=== PATIENT | male | born 1940 | race Caucasian/White ===

== ENCOUNTER 2018-01-02 19:52 | Emergency (ER) | payer MEDICARE, OTHER ==
--- NOTE | 2018-01-02 20:37 | EDM.PDOC ---
ED HPI GENERAL MEDICAL PROBLEM - General Chief Complaint: Genitourinary Problem Stated Complaint: BLOOD IN URINE Time Seen by Provider: 01/02/18 20:06 Source of Information: Reports: Patient History Limitations: Reports: No Limitations - History of Present Illness INITIAL COMMENTS - FREE TEXT/NARRATIVE: 77 YO WM with PMH of BPH and questionable Bladder CA over 18 years ago presents to ER with hematuria. Pt reports episode of hematuria around 4am today. Pt states he had clear urine throughout the day but this evening notice more hematuria prompting ER evaluation. Pt denies urinary retention, denies back pain or abdominal pain, denies fever/chills or nausea/vomiting. Pt reports no dysuria, but increased frequency that he suggests is related to increased oral fluid intake. Pt denies any anticoagulation or anti-platelet treatments currently. Onset: Today Onset Date: 01/02/18 Onset Time: 04:00 Duration: Day(s): (1) Severity: Mild Improves with: Reports: None Worsens with: Reports: None Associated Symptoms: Reports: No Other Symptoms - Related Data Allergies Allergy/AdvReac Type Severity Reaction Status Date / Time No Known Allergies Allergy Verified 01/02/18 20:00 Home Meds: Home Meds Albuterol [Proventil Neb Soln] 2.5 mg INH TID 01/02/18 [History] Albuterol [Ventolin HFA] 2 puff INH Q4H PRN 01/02/18 [History] Budesonide/Formoterol Fumarate [Symbicort 160-4.5 Mcg Inhaler] 2 puff IH BID [History] Cephalexin [Keflex] 500 mg PO Q6H #40 cap 01/02/18 [Rx] Finasteride [Proscar] 5 mg PO DAILY 01/02/18 [History] Fluticasone Propionate [Flonase Allergy Relief] 1 spray ROBB BEDTIME 01/02/18 [ History] Lisinopril [Prinivil] 20 mg PO DAILY 01/02/18 [History] Potassium 99 mg PO DAILY 01/02/18 [History] Simvastatin [Zocor] 20 mg PO DAILY 01/02/18 [History] Terazosin [Hytrin] 20 mg PO BEDTIME 01/02/18 [History] ED ROS GENERAL - Review of Systems Review Of Systems: See Below Constitutional: Reports: No Symptoms HEENT: Reports: No Symptoms Respiratory: Reports: No Symptoms. Denies: Hemoptysis Cardiovascular: Reports: No Symptoms Endocrine: Reports: No Symptoms GI/Abdominal: Denies: Abdominal Pain, Black Stool, Bloody Stool, Hematemesis, Hematochezia, Melena, Nausea, Vomiting : Reports: Frequency, Hematuria. Denies: Dysuria, Flank Pain, Urgency, Urinary Retention Musculoskeletal: Reports: No Symptoms Skin: Reports: No Symptoms Neurological: Reports: No Symptoms Psychiatric: Reports: No Symptoms Hematologic/Lymphatic: Reports: No Symptoms Immunologic: Reports: No Symptoms ED EXAM, RENAL/ - Physical Exam Exam: See Below Exam Limited By: No Limitations General Appearance: Alert, WD/WN, No Apparent Distress Head: Atraumatic, Normocephalic Neck: Normal Inspection, Supple, Non-Tender, Full Range of Motion Respiratory/Chest: No Respiratory Distress, Lungs Clear, Normal Breath Sounds, No Accessory Muscle Use, Chest Non-Tender Cardiovascular: Normal Peripheral Pulses, Regular Rate, Rhythm, No Edema, No Gallop, No JVD, No Murmur, No Rub GI/Abdominal: Normal Bowel Sounds, Soft, Non-Tender, No Organomegaly, No Distention, No Abnormal Bruit, No Mass Back Exam: Normal Inspection, Full Range of Motion. No: CVA Tenderness (L), CVA Tenderness (R) Extremities: Normal Inspection, Normal Range of Motion, Non-Tender, Normal Capillary Refill, No Pedal Edema Neurological: Alert, Oriented, CN II-XII Intact, Normal Cognition, Normal Gait, Normal Reflexes, No Motor/Sensory Deficits Psychiatric: Normal Affect, Normal Mood Skin Exam: Warm, Dry, Intact, Normal Color, No Rash Lymphatic: No Adenopathy Course - Vital Signs Last Recorded V/S: Last Vital Signs Temp 36.9 C 01/02/18 20:00 Pulse 85 01/02/18 20:00 Resp 20 01/02/18 20:00 BP 149/49 H 01/02/18 20:00 Pulse Ox 93 L 01/02/18 20:00 - Orders/Labs/Meds Orders: Active Orders 24 hr Category Date Time Status Bladder Scan [RC] ONETIME Care 01/02/18 20:38 Ordered CULTURE URINE [RM] Stat Lab 01/02/18 21:01 Ordered URINALYSIS W/MICROSCOPIC [UA W/MICROSCOPIC] [URIN] Stat Lab 01/02/18 20:25 Ordered Labs: Laboratory Tests 01/02/18 01/02/18 01/02/18 Range/Units 20:35 20:35 20:40 WBC 7.4 (5.0-10.0) 10^3/uL RBC 4.32 L (4.50-6.00) 10^6/uL Hgb 14.2 (13.0-17.0) g/dL Hct 42.1 (40.0-52.0) % MCV 97.2 H (82.0-92.0) fL MCH 32.8 H (27.0-31.0) pg MCHC 33.7 (32.0-36.0) g/dL RDW 12.1 (11.5-14.5) % Plt Count 268 (150-300) 10^3/uL MPV 7.1 L (7.4-10.4) fL Neut % (Auto) 63.6 (50.0-70.0) % Lymph % (Auto) 23.3 (20.0-40.0) % [place] % (Auto) 8.4 H (2.0-8.0) % Eos % (Auto) 4.0 H (1.0-3.0) % Baso % (Auto) 0.7 (0.0-1.0) % Neut # (Auto) 4.7 (2.5-7.0) 10^3/uL Lymph # (Auto) 1.7 (1.0-4.0) 10^3/uL [place] # (Auto) 0.6 (0.1-0.8) 10^3/uL Eos # (Auto) 0.3 (0.1-0.3) 10^3/uL Baso # (Auto) 0.1 (0.0-0.1) 10^3/uL Sodium 144 (136-145) mmol/L Potassium 3.8 (3.3-5.3) mmol/L Chloride 106 (98-115) mmol/L Carbon Dioxide 26.6 (21.0-32.0) mmol/L BUN 20 (6-25) mg/dL Creatinine 0.93 (0.51-1.17) mg/dL Est Cr Clr Drug Dosing 53.93 mL/min Estimated GFR (MDRD) > 60 mL/min Glucose 126 H (70-110) mg/dL Calcium 8.6 L (8.7-10.3) mg/dL Specimen Type Urinvoid Urine Color Red H (YELLOW) Urine Appearance Cloudy H (CLEAR) Urine pH 5.0 (5.0-9.0) Ur Specific [place] <= 1.005 (1.005-1.030) Urine Protein >=300 H (NEGATIVE) mg/dL Urine Glucose (UA) 100 H (NEGATIVE) mg/dL Urine Ketones 15 H (NEGATIVE) mg/dL Urine Occult Blood Large H (NEGATIVE) Urine Nitrite Negative (NEGATIVE) Urine Bilirubin Large H (NEGATIVE) Urine Urobilinogen 2.0 H (0.2-1.0) E.U./dL Ur Leukocyte Esterase Large H (NEGATIVE) Urine RBC Packed /HPF Urine WBC See note /HPF Ur Epithelial Cells /LPF Meds: Medications Discontinued Medications Generic Name Dose Route Start Last Admin Trade Name Freq PRN Reason Stop Dose Admin Ceftriaxone Sodium 1 gm 01/02/18 21:01 Rocephin IM 01/02/18 21:02 ONETIME ONE Departure - Departure Time of Disposition: 21:11 Disposition: Home, Self-Care 01 Condition: Good Clinical Impression: UTI, Urinary tract infectious disease, Hematuria syndrome - Discharge Information Prescriptions: Cephalexin [Keflex] 500 mg PO Q6H #40 cap Instructions: Urine Culture and Sensitivity Testing, Urinary Tract Infection, Adult, Hematuria, Adult Referrals: Rita Rivas, [employer]KEMAKING SUPERVISOR [Primary Care Provider] - Forms: ED Department Discharge Additional Instructions: 1. Discharge home 2. rocephin 1g IM now 3. Keflex 500mg PO Q6 4. follow up in clinic in next 72hrs for urine culture results 5. consider cystoscopy by Urologist per PCP 6. return to ER for worsening symptoms - My Orders Last 24 Hours: My Active Orders 01/02/18 20:25 URINALYSIS W/MICROSCOPIC [UA W/MICROSCOPIC] [URIN] Stat 01/02/18 20:38 Bladder Scan [RC] ONETIME 01/02/18 21:01 CULTURE URINE [RM] Stat - Assessment/Plan Last 24 Hours: My Active Orders 01/02/18 20:25 URINALYSIS W/MICROSCOPIC [UA W/MICROSCOPIC] [URIN] Stat 01/02/18 20:38 Bladder Scan [RC] ONETIME 01/02/18 21:01 CULTURE URINE [RM] Stat Assessment:: 1. Urinary tract infection 2. Hematuria Plan: 1. Discharge home 2. rocephin 1g IM now 3. Keflex 500mg PO Q6 4. follow up in clinic in next 72hrs for urine culture results 5. consider cystoscopy by Urologist per PCP 6. return to ER for worsening symptoms
[2018-01-02 21:01] LABS: CHLORIDE,CL 106 mmol/L (98-115); SODIUM,NA 144 mmol/L (136-145)
[2018-01-02] MEDS ORDERED: cefTRIAXone 1 GM Vial IM ONE (21:01)
== END 2018-01-02 21:25 | disposition home or self-care (01) ==
LOC: KA.ED 19:52
DX: N39.0 Urinary tract infection, site not specified (principal); Z79.899 Other long term (current) drug therapy
CPT/HCPCS: 36415; 51701; 80048; 81001; 85025; 87086; 96372; 99283; J0696

== ENCOUNTER 2018-04-23 06:48 | Day surgery (SDC) | payer MEDICARE, OTHER ==
[~2018-04-23 06:48] MED LIST: Bupivacaine 0.5%/EPINEPHrine 1:200,000 30 ML SDV ONE; Ketamine 500 mg/10 ML MDV ONE; Midazolam 1 MG/ML 2 ML SDV ONE; Propofol 200 MG/20 ML SDV ONE; ceFAZolin 1 GM Vial ONE; fentaNYL 100 MCG/2 ML SDV ONE
[2018-04-23] MEDS ORDERED: Sodium Chloride 0.9% 5 ML Syringe FLUSH PRN (07:00)
[2018-04-23] MEDS: Lactated Ringers 1,000 ML IV SCH (07:50)
[2018-04-23] MEDS ORDERED: Propofol 200 MG/20 ML SDV ONE (08:04)
[2018-04-23] MEDS ORDERED: Lactated Ringers 1,000 ML ONE (08:04)
[2018-04-23] MEDS ORDERED: ceFAZolin 1 GM Vial IV ONE (08:24)
[2018-04-23] MEDS ORDERED: Lactated Ringers 1,000 ML IV ONE (08:24)
[2018-04-23] MEDS ORDERED: fentaNYL 100 MCG/2 ML SDV IV ONE (08:24)
[2018-04-23] MEDS ORDERED: Albuterol HFA 18 Gm Inhaler INH ONE (08:24)
[2018-04-23] MEDS ORDERED: Propofol 200 MG/20 ML SDV IV ONE (08:24)
[2018-04-23] MEDS ORDERED: Midazolam 1 MG/ML 2 ML SDV IV ONE (08:24)
[2018-04-23] MEDS ORDERED: ePHEDrine 50 MG/ML SDV IV ONE (08:24)
[2018-04-23] MEDS ORDERED: Albuterol HFA 18 Gm Inhaler ONE (08:30)
[2018-04-23] MEDS: Bupivacaine 0.5%/EPINEPHrine 1:200,000 30 ML SDV INFILT ONE ×2 (08:45)
[2018-04-23] MEDS: Sodium Chloride 0.9% 20 ML SDV ONE (08:45)
[2018-04-23] MEDS: ceFAZolin 1 GM Vial ONE (08:45)
--- NOTE | 2018-04-23 09:44 | PCM.OPNOTE ---
- General Post-Op/Procedure Note Date of Surgery/Procedure: 04/23/18 Pre Op Diagnosis: Preoperative diagnosis: Umbilical hernia, ventral hernia Post-Op Diagnosis: As above Anesthesia Technique: Regional Block Primary Surgeon: Mikhail Carlson Condition: Good Free Text/Narrative:: OPERATION PERFORMED: Umbilical herniorrhaphy with placement of Marlex mesh. Repair of ventral abdominal hernia Preoperative diagnosis: Umbilical hernia with a ventral complement PROCEDURE: The patient was given a satisfactory spinal anesthetic and placed in the supine position. His abdomen is thoroughly prepped and draped in the usual fashion. The abdomen was opened by a vertical incision incision extending superior and inferior to the umbilicus. The skin incision was deepened to the subcutaneous tissue and we came down to the fascial sheath. We found the hernia in the umbilicus and dissected it. The contents were mostly omental tissue. A partial omentectomy was then performed in the usual fashion by clamping the omentum and ligating with 0 Polysorb sutures. We extended the fascia inferiorly as there was definitely a ventral component to the hernia. We then approximated the 2 edges of the ventral fascia in a double-breasted fashion using 0 silk sutures. The umbilical hernia and the ventral hernias were approximated very well. The defect was then fortified throughout the length by placing Marlex mesh and attaching it with 0 silk sutures. The wound was profusely irrigated. One or 2 small bleeders were cauterized. The subcutaneous tissue was closed with 4-0 Polysorb and the skin was also closed with 4-0 Polysorb in a subcuticular fashion. A sterile pressure dressing was applied. The patient tolerated the procedure well. There were no complications. The patient will be followed up in the clinic in 7-10 days. The patient is to wear an abdominal binder postop to prevent any recurrence and for comfort.
[2018-04-23] MEDS ORDERED: Ibuprofen 600 MG Tab PO PRN (14:25)
[2018-04-23] MEDS ORDERED: Acetaminophen 325 MG Tab ONE (14:35)
[2018-04-23] MEDS: Acetaminophen 325 MG Tab PO ONE (14:38)
[2018-04-23 15:21] VITALS: BP 153/64
== END 2018-04-23 15:00 | disposition home or self-care (01) ==
LOC: KA.SDS 06:48
PROVIDERS: ATTEND Family Medicine
DX: K42.9 Umbilical hernia without obstruction or gangrene (principal); K43.9 Ventral hernia without obstruction or gangrene; I10 Essential (primary) hypertension; J44.9 Chronic obstructive pulmonary disease, unspecified; N40.0 Benign prostatic hyperplasia without lower urinary tract symptoms; E78.5 Hyperlipidemia, unspecified; K21.9 Gastro-esophageal reflux disease without esophagitis; Z79.899 Other long term (current) drug therapy; Z87.891 Personal history of nicotine dependence
CPT/HCPCS: 51702; 93005; A9270-GY; C1781; J0690; J2250; J2704; J3010; J3490; J7120

== ENCOUNTER 2018-04-24 20:41 | Emergency (ER) | payer MEDICARE, OTHER ==
[2018-04-24] MEDS ORDERED: Lidocaine 2% Jelly 5 ML Tube ONE (21:05)
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
[2018-04-24] MEDS ORDERED: Lidocaine 2% Jelly 5 ML Tube TOP ONE (21:15)
[2018-04-24 22:02] VITALS: BP 132/52
== END 2018-04-24 21:38 | disposition home or self-care (01) ==
LOC: KA.ED 20:41
DX: R33.9 Retention of urine, unspecified (principal); I10 Essential (primary) hypertension; Z79.899 Other long term (current) drug therapy
CPT/HCPCS: 51702; 99283; 99284

== ENCOUNTER 2020-12-08 11:00 | Inpatient (IN) | payer MEDICARE, OTHER ==
[~2020-12-08 11:00] MED LIST changes: -Bupivacaine 0.5%/EPINEPHrine 1:200,000 30 ML SDV ONE; -Ketamine 500 mg/10 ML MDV ONE; -Midazolam 1 MG/ML 2 ML SDV ONE; -Propofol 200 MG/20 ML SDV ONE; +Sodium Chloride 0.9% 1,000 ML IV ONE; -ceFAZolin 1 GM Vial ONE; -fentaNYL 100 MCG/2 ML SDV ONE
[2020-12-08] MEDS ORDERED: Sodium Chloride 0.9% 1,000 ML ONE (11:28)
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
[2020-12-08 12:12] LABS: ANION GAP 19.4 mmol/L (5-15)
--- NOTE | 2020-12-08 12:14 | CR ---
[id number] RAD/RAD Chest PA And Lateral EXAM: RAD Chest PA And Lateral INDICATION: CHEST PAIN. COMPARISON: September 24, 2011. DISCUSSION: Cardiomediastinal silhouette is normal in size and contour. No infiltrate, effusion, pneumothorax, or edema. IMPRESSION: No acute cardiopulmonary abnormality. Yao Salgado DO 12/08/20 1213 Thank you for allowing us to participate in the care of your patient.
[2020-12-08] MEDS ORDERED: Sodium Chloride 0.9% 1,000 ML IV ONE ×2 (13:54→13:57)
[2020-12-08] MEDS ORDERED: cefTRIAXone 1 GM Vial IVPUSH ONE (17:44)
[2020-12-08] MEDS: Sertraline 50 MG Tab PO SCH (20:07)
[2020-12-08] MEDS: Budesonide 0.5 MG/2 ML Neb Susp NEB SCH (20:08)
[2020-12-08] MEDS: Sodium Chloride 0.9% 1,000 ML IV SCH (20:08)
[2020-12-08] MEDS: Albuterol 0.083% 2.5 MG/3 ML Neb Soln INH SCH (20:08)
[2020-12-08] MEDS: Acetaminophen 325 MG Tab PO SCH (20:44)
[2020-12-09] MEDS: Acetaminophen 325 MG Tab PO PRN ×2 (01:56→08:21)
[2020-12-09] MEDS: Albuterol 8 GM Inhaler INH PRN (01:57)
[2020-12-09] MEDS: Sodium Chloride 0.9% 1,000 ML IV SCH (06:25)
[2020-12-09 08:18] LABS: ANION GAP 15.8 mmol/L (5-15)
[2020-12-09] MEDS: Donepezil 10 MG Tab PO SCH (08:28)
[2020-12-09] MEDS: Albuterol 0.083% 2.5 MG/3 ML Neb Soln INH SCH ×4 (08:31→20:21)
[2020-12-09] MEDS: Budesonide 0.5 MG/2 ML Neb Susp NEB SCH ×2 (08:35→20:31)
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
[2020-12-09] MEDS ORDERED: Sodium Chloride 0.9% 1,000 ML IV SCH (11:00)
[2020-12-09] MEDS: traMADol 50 MG Tab PO PRN (16:16)
[2020-12-09] MEDS ORDERED: Lisinopril 20 MG Tab PO ONE (19:30)
[2020-12-09] MEDS: Terazosin 5 MG Cap PO SCH ×2 (19:49→20:11)
[2020-12-09] MEDS: Acetaminophen 325 MG Tab PO SCH (20:16)
[2020-12-09] MEDS: Sertraline 50 MG Tab PO SCH (20:17)
[2020-12-10] MEDS: traMADol 50 MG Tab PO PRN (03:30)
[2020-12-10 07:53] LABS: ANION GAP 14.7 mmol/L (5-15); CHLORIDE,CL 109 mmol/L (98-107); SODIUM,NA 145 mmol/L (136-145)
[2020-12-10] MEDS ORDERED: Lisinopril 20 MG Tab PO SCH (09:00)
[2020-12-10] MEDS: Donepezil 10 MG Tab PO SCH (09:36)
[2020-12-10] MEDS: Albuterol 0.083% 2.5 MG/3 ML Neb Soln INH SCH (09:36)
[2020-12-10] MEDS: Budesonide 0.5 MG/2 ML Neb Susp NEB SCH (09:43)
--- NOTE | 2020-12-10 09:43 | PCM.DCSUM1 ---
Discharge Summary - Hospital Course Free Text/Narrative:: Date of admission: 12/08/20 Date of discharge: 12/10/20 Admission diagnoses: LETI, prerenal, dehydration Hypotension Recent fall left-sided MSK contusion COPD, mild exacerbation Asymptomatic bacteruria Hypertension Benign prostatic hypertrophy Discharge diagnoses: LETI, prerenal, dehydration; resolved. Hypotension; resolved Recent fall left-sided MSK contusion COPD, mild exacerbation; at baseline Asymptomatic bacteruria Hypertension; restart lisinopril at decreased dose given LETI, hypotension Benign prostatic hypertrophy; dual therapy of hytrin, finasteride Hospital course: HPI: Mr Alicia is an 80-year-old patient that was admitted into inpatient status on 12/08/2020 from the ED due to hypotension and hypoxia. Patient is a resident of [facility] center and [place] staff reported the patient to have significant SBP in the 80s and although he does have COPD in which he has nocturnal baseline O2 requirements NH staff has had increasing his oxygen during the day due to hypoxia. Patient does have a history of urinary retention with bladder CA 1999, currently on Hytrin ED course: VS: On arrival; BP 94/38, RR 20, HR 63, 95% pox 3 L WBC 10.21, neutrophils 78% monos 0.99 Creatinine, 4.41, well above baseline, BUN 45 Lactate normal CK 285 UA, few epithelial, slight proteinuria, hematuria CXR, no acute cardiopulmonary processes Rocephin 1 g was given in ED 12/08/2020; patient was hydrated with non-buffered NS at 100 mL/h with very favorable trending creatinine/BUN; prerenal etiology suspected without ATN, no signs/sx of postobstructive uropathy as bladder scanned 150 mL PVR 12/10/20: LETI resolved with IV fluids; labs normalized. Dual therapy recommended for BPH symptoms. Restarted ANICETO as patient now mildly hypertensive. Tramadol given while hospitalized for left hip pain s/p fall prior to admit along with senna to prevent OIC; this will not be continued at SNF upon discharge. Patient maintaining hydration status on oral fluids. Patient at baseline respiratory and cognitive status. Patient's sonHebert updated as to Father's status. POLST document completed; patient DNR per sonHebert (DPOA) Discharge and follow-up recommendations: - Discharge to [facility] - New medications at discharge: - lisinopril decreased to 20mg PO daily - finasteride 5mg PO daily - Follow-up - Repeat BMP on 12/15/20 - On next assisted rounds - Consider LABA for COPD - Discharge Data Discharge Date: 12/10/20 Discharge Disposition: DC/Tfer to [facility] 03 Condition: Good - Referral to Home Health Primary Care Physician: Mikhail Carlson MD - Patient Instructions Diet: Usual Diet as Tolerated - Discharge Plan *PRESCRIPTION DRUG MONITORING PROGRAM REVIEWED*: Not Applicable *COPY OF PRESCRIPTION DRUG MONITORING REPORT IN PATIENT MECHE: Not Applicable Prescriptions/Med Rec: Finasteride 5 mg PO DAILY 30 Days #30 tablet Home Medications: Home Meds Albuterol [Proventil Neb Soln] 2.5 mg INH TID 01/02/18 [History] Albuterol [Ventolin HFA] 2 puff INH Q4H PRN 01/02/18 [History] Terazosin [Hytrin] 20 mg PO BEDTIME 01/02/18 [History] Budesonide [Pulmicort] 0.5 mg IH BID 12/08/20 [History] Donepezil HCl [Aricept] 10 mg PO DAILY 12/08/20 [History] Sertraline [Zoloft] 50 mg PO BEDTIME 12/08/20 [History] Acetaminophen [Tylenol] 650 mg PO Q8H PRN tablet 12/10/20 [Rx] Acetaminophen [Tylenol] 650 mg PO TID #0 12/10/20 [Rx] Finasteride 5 mg PO DAILY 30 Days #30 tablet 12/10/20 [Rx] lisinopriL [Prinivil] 20 mg PO DAILY #0 12/10/20 [Rx] Referrals: Tamiko Rivas, PRINCIPAL PROGRAMMER [Nurse Practitioner] - (On next rounds) - Discharge Summary/Plan Comment DC Time >30 min.: Yes - General Info Date of Service: 12/10/20 Functional Status: Reports: Pain Controlled - Review of Systems General: Reports: No Symptoms HEENT: Reports: No Symptoms Pulmonary: Reports: Cough, Sputum (clear), Wheezing. Denies: Shortness of Breath Cardiovascular: Reports: No Symptoms Gastrointestinal: Reports: No Symptoms Genitourinary: Reports: No Symptoms Neurological: Reports: Confusion Psychiatric: Reports: Confusion - Patient Data Vitals - Most Recent: Last Vital Signs Temp 96.8 F L 12/10/20 06:40 Pulse 63 12/10/20 06:40 Resp 24 H 12/10/20 06:40 BP 163/63 H 12/10/20 06:40 Pulse Ox 96 12/10/20 06:40 Weight - Most Recent: 140 lb I&O - Last 24 hours: Intake & Output 12/09/20 12/10/20 12/10/20 22:59 06:59 14:59 Intake Total 398 0 Output Total 600 Balance -202 0 Lab Results - Last 24 hrs: Laboratory Results - last 24 hr 12/09/20 12/10/20 Range/Units 07:50 07:15 Neutrophils % (Manual) 77 H (50-70) % Lymphocytes % (Manual) 12 L (20-40) % Monocytes % (Manual) 10 H (2-8) % Eosinophils % (Manual) 1 (1-3) % Absolute Neutrophils 6.59 Lymphocytes # (Manual) 1.03 Monocytes # (Manual) 0.86 Eosinophils # (Manual) 0.09 Sodium 145 (136-145) mmol/L Potassium 4.1 (3.5-5.1) mmol/L Chloride 109 H (98-107) mmol/L Carbon Dioxide 25.4 (21.0-32.0) mmol/L Anion Gap 14.7 (5-15) mmol/L BUN 14 (7-18) mg/dL Creatinine 0.72 (0.51-1.17) mg/dL Est Cr Clr Drug Dosing 66.23 mL/min Estimated GFR (MDRD) > 60 mL/min Glucose 92 (70-140) mg/dL Calcium 8.0 L (8.7-10.3) mg/dL SUDHA Results - Last 24 hrs: Microbiology 12/08/20 15:15 Aerobic Blood Culture - Preliminary Blood - Venous NO GROWTH AFTER 1 DAY Anaerobic Blood Culture - Preliminary NO GROWTH AFTER 1 DAY 12/08/20 15:25 Aerobic Blood Culture - Preliminary Blood - Venous - Lab Draw NO GROWTH AFTER 1 DAY Anaerobic Blood Culture - Preliminary NO GROWTH AFTER 1 DAY Med Orders - Current: Current Medications Acetaminophen (Acetaminophen 325 Mg Tab) 650 mg PO BEDTIME [facility] Last Admin: 12/09/20 20:16 Dose: 650 mg Documented by: Acetaminophen (Acetaminophen 325 Mg Tab) 650 mg PO Q8H PRN PRN Reason: Pain Last Admin: 12/09/20 08:21 Dose: 650 mg Documented by: Albuterol (Albuterol 8 Gm Inhaler) 0 gm INH Q4H PRN PRN Reason: sob Last Admin: 12/09/20 01:57 Dose: 2 puff Documented by: Albuterol (Albuterol 0.083% 2.5 Mg/3 Ml Neb Soln) 2.5 mg INH QID [facility] Last Admin: 12/09/20 20:21 Dose: 2.5 mg Documented by: Budesonide (Budesonide 0.5 Mg/2 Ml Neb Susp) 0.5 mg NEB BID [facility] Last Admin: 12/09/20 20:31 Dose: 0.5 mg Documented by: Donepezil HCl (Donepezil 10 Mg Tab) 10 mg PO DAILY [facility] Last Admin: 12/09/20 08:28 Dose: 10 mg Documented by: Lisinopril (Lisinopril 20 Mg Tab) 20 mg PO DAILY [facility] Senna/Docusate Sodium (Docusate Sodium/Sennosides 50-8.6 Mg Tab) 1 tab PO BEDTIME [facility] Last Admin: 12/09/20 20:16 Dose: 1 tab Documented by: Sertraline HCl (Sertraline 50 Mg Tab) 50 mg PO BEDTIME [facility] Last Admin: 12/09/20 20:17 Dose: 50 mg Documented by: Terazosin HCl (Terazosin 5 Mg Cap) 20 mg PO BEDTIME [facility] Last Admin: 12/09/20 20:11 Dose: Not Given Documented by: Tramadol HCl (Tramadol 50 Mg Tab) 50 mg PO Q8H PRN PRN Reason: Musculoskeletal pain Last Admin: 12/10/20 03:30 Dose: 50 mg Documented by: Discontinued Medications Albuterol (Albuterol 0.083% 2.5 Mg/3 Ml Neb Soln) 2.5 mg INH TID [facility] Last Admin: 12/09/20 08:31 Dose: 2.5 mg Documented by: Ceftriaxone Sodium (Ceftriaxone 1 Gm Vial) 1 gm IVPUSH ONETIME ONE Stop: 12/08/20 17:45 Last Admin: 12/08/20 18:35 Dose: 1 gm Documented by: Sodium Chloride (Normal Saline) Confirm Administered Dose 1,000 mls @ as directed .ROUTE .STK-MED ONE Stop: 12/08/20 11:29 Last Admin: 12/08/20 11:46 Dose: Not Given Documented by: Sodium Chloride (Normal Saline) 1,000 mls @ 999 mls/hr IV .BOLUS ONE Stop: 12/08/20 12:00 Last Admin: 12/08/20 11:41 Dose: 999 mls/hr Documented by: Sodium Chloride (Normal Saline) 1,000 mls @ 999 mls/hr IV .BOLUS ONE Stop: 12/08/20 14:54 Last Admin: 12/08/20 13:58 Dose: 999 mls/hr Documented by: Sodium Chloride (Normal Saline) 1,000 mls @ 999 mls/hr IV .BOLUS ONE Stop: 12/08/20 14:57 Last Admin: 12/08/20 14:00 Dose: Not Given Documented by: Sodium Chloride (Normal Saline) 1,000 mls @ 100 mls/hr IV ASDIRECTED [facility] Last Infusion: 12/09/20 12:09 Dose: 75 mls/hr Documented by: Sodium Chloride (Normal Saline) 1,000 mls @ 75 mls/hr IV ASDIRECTED [facility] Lisinopril (Lisinopril 20 Mg Tab) 20 mg PO ONETIME ONE Stop: 12/09/20 19:31 Last Admin: 12/09/20 21:00 Dose: Not Given Documented by: - Exam Quality Assessment: Reports: Supplemental Oxygen General: Reports: Alert, Cooperative. Denies: Oriented (to self) HEENT: Reports: Pupils Equal, Mucous Membr. Moist/[place] Neck: Reports: Supple Lungs: Reports: Decreased Breath Sounds, Wheezing. Denies: Crackles Cardiovascular: Reports: Regular Rate, Regular Rhythm GI/Abdominal Exam: Normal Bowel Sounds, Soft, Non-Tender (Male) Exam: Deferred Rectal (Males) Exam: Deferred Back Exam: Reports: Normal Inspection, Full Range of Motion Extremities: No Pedal Edema, Other (resolving bruise to left lateral hip s/p fall prior to admit ) Skin: Reports: Warm, Dry, Intact Neurological: Reports: No New Focal Deficit Psy/Mental Status: Reports: Alert, Labile Mood, Anxious
[2020-12-10] MEDS: Albuterol 8 GM Inhaler INH PRN (09:57)
== END 2020-12-10 11:15 | DRG 683 ==
LOC: KA.ED 11:00 → KA.MS 17:55 → UNDOADMIN 17:55 → KA.MS 19:12
PROVIDERS: ADMIT Nurse Practitioner Family; ATTEND Nurse Practitioner Family
DX: N17.9 Acute kidney failure, unspecified (principal); J44.1 Chronic obstructive pulmonary disease with (acute) exacerbation; E86.0 Dehydration; N39.0 Urinary tract infection, site not specified; I95.9 Hypotension, unspecified; I10 Essential (primary) hypertension; R82.71 Bacteriuria; J44.9 Chronic obstructive pulmonary disease, unspecified; Z66 Do not resuscitate; R33.9 Retention of urine, unspecified; H91.90 Unspecified hearing loss, unspecified ear; H54.7 Unspecified visual loss; Z79.51 Long term (current) use of inhaled steroids; R33.8 Other retention of urine; N40.1 Benign prostatic hyperplasia with lower urinary tract symptoms; Z96.0 Presence of urogenital implants; N42.9 Disorder of prostate, unspecified; G20 Parkinson's disease; Z20.822 Contact with and (suspected) exposure to COVID-19; Z79.899 Other long term (current) drug therapy; Z85.51 Personal history of malignant neoplasm of bladder; Z85.820 Personal history of malignant melanoma of skin; Z98.49 Cataract extraction status, unspecified eye; Z90.89 Acquired absence of other organs
CPT/HCPCS: 36415; 51798; 71046; 80048; 80076; 81001; 82550; 82570; 83605; 84300; 84484; 85025; 87040; 87086; 93005; 94640; 96374; 99284; 99285-25; A9270-GY; J0696; J7030; J7613-GY; U0002